=== PATIENT | female | born 2005 | race Two or more races ===

== ENCOUNTER 2024-07-17 22:14 | Emergency (ER) | payer BC ==
[2024-07-17] MEDS ORDERED: Acetaminophen 500 MG TAB ONE (22:29)
[2024-07-17] MEDS ORDERED: diphenhydrAMINE 25 MG CAP ONE (23:22)
[2024-07-17] MEDS ORDERED: Ketorolac Tromethamine 30 MG (1 mL) VIAL ONE (23:22)
[2024-07-17] MEDS ORDERED: Prochlorperazine Maleate 5 MG TAB ONE (23:26)
[2024-07-18 00:34] LABS: Bilirubin Negative (Negative); Blood, Urine 2+ (Negative); CAUTI Indications for Culture Dysuria,urgency,freq; Clarity Clear (Clear); Glucose, Urine (Dipstick) Normal (Negative); Ketone, Urine 10 mg/dL (Negative); Leukocyte Negative Leu/uL (Negative); Nitrite Negative (Negative); Protein, Urine (Dipstick) 20 mg/dL (Neg-Trace); Specific Gravity, Urine 1.034 (1.002-1.036); Squamous Epithelial 0-3 HPF (0-3); Urobilinogen Normal mg/dL (Less than 2)
[2024-07-18 00:43] LABS: Bacteria/HPF 1+ HPF (None Seen); Pregnancy Test - Urine (BHCG) Negative (Negative); Pregu Control Background? CLEAR/WHITE (CLR/WHITE); Pregu Control Bar Appear? YES (CONTROL BAR); Specific Gravity 1.034 (1.002-1.036); Urine Culture Reflex No No
== END 2024-07-18 01:12 | disposition home or self-care (01) ==
LOC: ERS 22:14
DX: B34.9 Viral infection, unspecified (principal); G43.909 Migraine, unspecified, not intractable, without status migrainosus
CPT/HCPCS: 81001; 81025; 87081; 87428; 87430; 96374; J1885; Q0164